=== PATIENT | male | born 1960 | race Caucasian/White ===

== ENCOUNTER 2023-03-20 08:17 | Outpatient (CLI) | payer OTHER ==
[2023-03-20] MEDS ORDERED: Iopamidol 300 61% 100 ML VIAL FS ONE (12:27)
== END 2023-03-20 08:18 | disposition home or self-care (01) ==
LOC: CSHCT 08:17
PROVIDERS: ATTEND Family Medicine
DX: E61.1 Iron deficiency (principal)
CPT/HCPCS: 71260; 74177; 82565

== ENCOUNTER → 2023-07-08 | Day surgery (SDC) | payer OTHER ==
[~2023-07-08] MED LIST: Lidocaine 1% PF 5 ML VIAL ONE; Sodium Bicarbonate 2.5 MEQ/5 ML VIAL ONE
== END ==
LOC: CSHRAD 12:44
PROVIDERS: ATTEND Neurological Surgery
PROC: B00BYZZ Plain Radiography of Spinal Cord using Other Contrast (ICD-10-PCS; principal; 2023-07-08)
DX: M54.12 Radiculopathy, cervical region (principal); M48.00 Spinal stenosis, site unspecified
CPT/HCPCS: 62302; 72125

== ENCOUNTER 2025-02-16 08:33 | Outpatient (CLI) | payer OTHER | END 2025-02-16 08:34 | disposition home or self-care (01) | LOC: CSHMRI 08:33 | PROVIDERS: ATTEND Family Medicine | DX: R97.20 Elevated prostate specific antigen [PSA] (principal); R93.89 Abnormal findings on diagnostic imaging of other specified body structures; N40.2 Nodular prostate without lower urinary tract symptoms | CPT/HCPCS: 72197 ==